=== PATIENT | female | born 1950 | race Caucasian/White ===

== ENCOUNTER 2019-06-28 12:02 | Inpatient (IN) ==
--- NOTE | 2019-06-28 12:21 | Diag Imaging Result Doc PS360 ---
EXAM: CT HEAD W/O CONTRAST 06/28/2019 HISTORY: left sided weakness TECHNIQUE: This exam was performed using automated exposure control, adjustment of mA or kV according to patient size, and/or use of iterative reconstruction technique. COMMENT: There are calcifications in the globus pallidus bilaterally. There is no evidence of mass effect, bleed, or abnormal extra-axial fluid collection. There is hyperostosis of the calvarium. There is also extensive ossification of the falx cerebri. The paranasal sinuses are clear. There is no evidence of acute bony abnormality. IMPRESSION: No evidence of acute intracranial disease. Electronically signed by Jose Sharma 06/28/2019 12:19 PM
--- NOTE | 2019-06-28 12:44 | Diag Imaging Result Doc PS360 ---
EXAM: CHEST-PORTABLE 06/28/2019 HISTORY: tia TECHNIQUE: AP portable upright at 1237 COMMENT: The inspiration is suboptimal. There is some questionable atelectasis or pneumonia in the left lower lobe behind the heart. Otherwise the appearance of the chest has not changed appreciably considering differences in inspiration since 01/22/2015. IMPRESSION: Questionable left lower lobe atelectasis. Electronically signed by Jose Sharma 06/28/2019 12:42 PM
[2019-06-28] MEDS ORDERED: NS 1,000 ML IV ONE ×2 (12:58→15:18)
[2019-06-28 13:17] LABS: BASO# 0.04 X1000 (0.0-0.2); BASO% 0.5 % (0.0-0.8); EOS# 0.08 X1000 (0.0-0.7); EOS% 1.1 % (0.0-10.0); HEMOGLOBIN 12.7 g/dL (12.0-16.0); LYMPH# 2.21 X1000 (1.2-3.4); LYMPH% 30.1 % (20.5-51.1); MCH 27.4 PG (27-31); MCHC 31.8 g/dL (33-37); MCV 86.4 FL (81-99); MONO# 0.61 X1000 (0.11-0.59); MONO% 8.3 % (1.7-9.3); MPV 10.4 FL (7.4-10.4); PLT 285 X1000 (130-400); RBC 4.63 XMIL (4.2-5.4); RDW 13.1 % (11.5-14.5); WBC 7.34 X1000 (4.8-10.8)
[2019-06-28 13:37] LABS: AGAP 13; ALB/GLOB RATIO 1.5; ALBUMIN 3.9 g/dL (3.5-5.0); ALKALINE PHOSPHATASE 88 U/L (32-104); BUN 11 mg/dL (8-22); CALCIUM 8.6 mg/dL (8.8-10.2); CHLORIDE 102 mmol/L (98-107); CK PROFILE 131 U/L (24-173); COSMO 281; CREATININE 0.6 mg/dL (0.5-0.9); ESTIMATED GFR > 60; GLUCOSE 141 mg/dL (70-104); GOT 29 U/L (10-30); GPT 25 U/L (10-36); POTASSIUM 4.7 mmol/L (3.5-5.1); SODIUM 140 mmol/L (136-145); TCO2 25 mmol/L (25-35); TOTAL BILIRUBIN 0.49 mg/dL (0.20-1.00); TOTAL PROTEIN 6.5 g/dL (6.3-8.3)
[2019-06-28] MEDS ORDERED: HEPARIN IV PRN (13:58)
[2019-06-28] MEDS ORDERED: HEPARIN IV ONE ×2 (13:58→14:30)
[2019-06-28] MEDS ORDERED: HEPARIN 25,000 UNITS/D5W 25,000 UNIT/250 ML IV.SOLN IV SCH (14:00)
[2019-06-28 14:29] LABS: INR 0.97; PROTIME 12.9 Seconds (11.0-16.0)
[2019-06-28 14:30] LABS: PTT 26.6 Seconds (22.3-41.8)
[2019-06-28] MEDS ORDERED: HEPARIN 25,000 UNITS/1/2NS 25,000 UNIT/250 ML IV.SOLN IV SCH (15:00)
--- NOTE | 2019-06-28 16:52 | Diag Imaging Result Doc PS360 ---
EXAM: CT ANGIOGRAM HEAD/NECK 06/28/2019 HISTORY: stroke TECHNIQUE: This exam was performed using automated exposure control, adjustment of mA or kV according to patient size, and/or use of iterative reconstruction technique. COMMENT: 3-D MIPS were performed. There are nodules in both thyroid lobes. The common and internal carotid arteries are patent bilaterally. The internal carotids are very tortuous proximally. Both vertebral arteries are patent. The left is larger than the right. The basilar artery is patent. The proximal anterior, middle and posterior cerebral arteries are patent. There is no evidence of aneurysm. There is no evidence of abnormal contrast enhancement in the brain. IMPRESSION: No evidence of significant intra or extra cerebral arterial abnormality. Electronically signed by Jose Sharma 06/28/2019 4:49 PM
[2019-06-28] MEDS ORDERED: ASPIRIN PO ONE (17:05)
--- NOTE | 2019-06-28 17:11 | PROVIDER DOCUMENTATION ---
This chart was entered by Oli Jimenez Scribe, acting as scribe for Cooper Rey DO. HPI-Neurological Disorder - General Chief Complaint: Stroke-Like Symptoms Stated Complaint: SROKE LIKE SYMPTOMS Time Seen by Provider: 06/28/19 12:07 Source: patient Allergies/Adverse Reactions: Patient Allergies Allergy/AdvReac Type Severity Reaction Status Date / Time adhesive Allergy Intermediate RASH Verified 06/28/19 12:59 Home Medications: Home Medication List Medication Instructions Recorded Confirmed Last Taken Type Baclofen 10 mg PO TID 03/24/12 06/28/19 01/21/15 07:00 History Duloxetine [Cymbalta] 60 mg PO BID 03/24/12 06/28/19 01/21/15 07:00 History Hydromorphone [Dilaudid] 4 mg PO 4XDAY 03/24/12 06/28/19 01/21/15 07:00 History Zolpidem [Ambien] 10 mg PO QHS 03/24/12 06/28/19 01/20/15 20:00 History Losartan [Cozaar] 50 mg PO DAILY #30 tablet 01/25/15 06/28/19 Unknown Rx Metoprolol [Lopressor] 50 mg PO BID #60 tablet 01/25/15 06/28/19 Unknown Rx Gabapentin [Neurontin] 400 mg PO TID 06/28/19 06/28/19 Unknown History Lisinopril [Zestril] 20 mg PO DAILY #30 tab 06/28/19 Unknown Rx Metformin E.r. [Glucophage Xr] 500 mg PO BID CC 06/28/19 06/28/19 Unknown History - History of Present Illness-Neuro Nature of Presenting Problem: Pt is a 68 y/o F presents to the ED by EMS reports she woke from a nap difficult to move her left arm and leg. She says this began to wax and wane and when she got to use the bathroom it got worse. She reports in the bathroom and layed on the floor had her sister call EMS. She says she is not able to lay flat since her back surgery 7 months ago. She denies slurred speech or difficultly with speaking. Onset/Duration: reports: abrupt, just prior to arrival Timing: reports: improving (Now able to move all extremites) Character of Altered Mental Status: reports: N/A Any recent trauma/injury?: reports: none Character of Deficits: reports: new weakness. denies: vision problem/glaucoma, impaired speech, impaired swallowing New weakness or altered sensation location:: reports: LUCILA MATTXander Cognitive Baseline: alert, oriented x3 Gait Baseline: walks without assistance Associated Symptoms: reports: numbness in legs/feet. denies: short of breath, headache, dizziness, loss of consciousness, sleepy, tingling in legs/feet Review of Systems - Adult - REVIEW OF SYSTEMS - ADULT Constitutional: denies: chills, fever Eyes: reports: no symptoms reported Ears, Nose, Mouth & Throat: reports: no symptoms reported Cardiovascular: denies: chest pain, edema Respiratory: denies: cough, shortness of breath, wheezing Gastrointestinal: denies: abdominal pain, nausea, vomiting Genitourinary: reports: no symptoms reported Musculoskeletal: denies: bone pain, back pain, neck pain Integumentary: reports: no symptoms reported Neurological: reports: numbness (left arm and leg). denies: dizziness/vertigo, headache/migraines, slurred speech, syncope Psychiatric: reports: no symptoms reported Endocrine: reports: no symptoms reported Hematologic/Lymphatic: reports: no symptoms reported Allergic/Immunologic: reports: no symptoms reported All Other Systems: Reviewed and Negative Past History - Adult - PAST MEDICAL HISTORY-ADULT Review of Records: reports: Old Records Reviewed, Nursing Assessment Review, Medications Reviewed Cardiovascular: reports: HTN Gastrointestinal: reports: diverticulosis, ulcer Musculoskeletal: reports: arthritis (rheumatoid) - PRIOR SURGERIES/PROCEDURES Surgical/Procedure History: reports: bowel surgery (colectomy due to diverticulitis and perf peptic ulcer repair) - SOCIAL HISTORY Smoking: non-smoker, quit greater than 1 year Substance Use: alcohol Alcohol Use Frequency: occasionally Physical Exam- Neurological - Physical Exam-Neuro Initial Vital Signs Reviewed: Yes General Appearance: appears well, alert, no apparent distress Eye Exam: bilateral eye: normal inspection HENMT: moist mucous membranes, normal ENT inspection Head Injury: no evidence of injury. 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 negative: normal finger to nose (left is abnormal) Motor/Sensory: no motor deficit, no sensory deficit, no pronator drift Neurologic: grossly normal, no motor/sensory deficits Integumentary: normal color, normal turgor, warm/dry Psych/Mental Status: normal mood/affect, normal thought content, normal thought process, oriented x 3 Progress - PLAN OF CARE/RESULTS Progress/Plan/Lab Results: Vital Signs - 8 hr 06/28/19 12:05 06/28/19 12:23 06/28/19 13:15 Temperature 97.8 F Pulse Rate 68 62 60 Respiratory Rate 18 19 12 Blood Pressure 153/86 153/86 156/82 O2 Sat by Pulse Oximetry 95 92 L 96 06/28/19 14:15 06/28/19 14:45 06/28/19 14:53 Temperature 98.4 F Pulse Rate 61 66 65 Respiratory Rate 17 14 18 Blood Pressure 133/73 95/74 139/79 O2 Sat by Pulse Oximetry 94 L 93 L 86 L 06/28/19 14:54 06/28/19 15:00 06/28/19 15:03 Temperature Pulse Rate 64 64 65 Respiratory Rate 20 17 20 Blood Pressure 143/68 O2 Sat by Pulse Oximetry 95 96 95 06/28/19 15:15 06/28/19 15:30 06/28/19 15:32 Temperature Pulse Rate 65 66 66 Respiratory Rate 18 13 12 Blood Pressure 114/52 O2 Sat by Pulse Oximetry 95 94 L 94 L 06/28/19 15:45 06/28/19 16:21 06/28/19 16:30 Temperature Pulse Rate 70 79 77 Respiratory Rate 16 17 15 Blood Pressure O2 Sat by Pulse Oximetry 94 L 92 L 95 06/28/19 16:32 06/28/19 16:45 Temperature Pulse Rate 79 73 Respiratory Rate 16 17 Blood Pressure 165/89 O2 Sat by Pulse Oximetry 95 96 Laboratory Results - last 24 hr 06/28/19 06/28/19 06/28/19 12:22 12:50 12:50 WBC RBC Hgb Hct MCV MCH MCHC RDW Std Deviation Plt Count MPV Immature Gran % (Auto) Neut % (Auto) Lymph % (Auto) Pender % (Auto) Eos % (Auto) Baso % (Auto) Immature Gran # (Auto) Neut # (Auto) Lymph # (Auto) Pender # (Auto) Eos # (Auto) Baso # (Auto) PT INR PTT (Actin FS) Sodium 140 Potassium 4.7 Chloride 102 Carbon Dioxide 25 Anion Gap 13 BUN 11 Creatinine 0.6 Estimated GFR/1.73 m2 > 60 BUN/Creatinine Ratio 18 Glucose 141 H POC Glucose 145 H Calculated Osmolality 281 Calcium 8.6 L Total Bilirubin 0.49 AST 29 ALT 25 Alkaline Phosphatase 88 Creatine Kinase 131 Gea-B-Fwjzwjeadds Pept 317 Total Protein 6.5 Albumin 3.9 Globulin 2.6 Albumin/Globulin Ratio 1.5 06/28/19 06/28/19 12:50 12:50 WBC 7.34 RBC 4.63 Hgb 12.7 Hct 40.0 MCV 86.4 MCH 27.4 MCHC 31.8 L RDW Std Deviation 13.1 Plt Count 285 MPV 10.4 Immature Gran % (Auto) 0.0 Neut % (Auto) 60.0 Lymph % (Auto) 30.1 Pender % (Auto) 8.3 Eos % (Auto) 1.1 Baso % (Auto) 0.5 Immature Gran # (Auto) 0.00 Neut # (Auto) 4.40 Lymph # (Auto) 2.21 Pender # (Auto) 0.61 H Eos # (Auto) 0.08 Baso # (Auto) 0.04 PT 12.9 INR 0.97 PTT (Actin FS) 26.6 Sodium Potassium Chloride Carbon Dioxide Anion Gap BUN Creatinine Estimated GFR/1.73 m2 BUN/Creatinine Ratio Glucose POC Glucose Calculated Osmolality Calcium Total Bilirubin AST ALT Alkaline Phosphatase Creatine Kinase Npl-N-Kgsdbvztpzb Pept Total Protein Albumin Globulin Albumin/Globulin Ratio Orders Category Date Time Status Hold Pressure Notice (Heparin Protocol) ORDERED Care 06/28/19 13:58 Completed Observe for Bleeding (Heparin Protocol) ORDERED Care 06/28/19 13:58 Completed Weigh Patient NOW Care 06/28/19 13:58 Active CHEST-PORTABLE [RAD] Stat Exams 06/28/19 12:[address] HEAD W/O CONTRAST [CT] Stat Exams 06/28/19 12:05 Completed CTA [CT ANGIOGRAM HEAD/NECK] [CT] Stat Exams 06/28/19 15:14 Completed CBC WITH DIFF [HEME] Lab 06/29/19 06:00 Uncollected CBC WITH DIFF [HEME] Lab 06/30/19 06:00 Uncollected CBC WITH DIFF [HEME] Lab 07/01/19 06:00 Uncollected CBC WITH ELECTRONIC DIFF [HEME] Stat Lab 06/28/19 12:50 Completed CK PROFILE [SP CHEM] Stat Lab 06/28/19 12:50 Completed COMPREHENSIVE METABOLIC PANEL [CHEM] Stat Lab 06/28/19 12:50 Completed PRO B-NATRIURETIC PEPTIDE Stat Lab 06/28/19 12:50 Completed PROTIME WITH INR [COAG] Stat Lab 06/28/19 12:50 Completed PTT [COAG] Stat Lab 06/28/19 12:50 Completed 0.9% Sodium Chloride Inj [Ns] 1,000 ml Med 06/28/19 12:58 Discontinued IV 999 mls/hr 0.9% Sodium Chloride Inj [Ns] 1,000 ml Med 06/28/19 15:18 Discontinued IV 999 mls/hr Aspirin Med 06/28/19 17:05 Discontinued 324 mg PO NOW ONE Heparin Med 06/28/19 14:30 Discontinued 5,000 unit IV NOW ONE Heparin Med 06/28/19 13:58 Discontinued 5,272 unit IV PRN PRN Heparin Med 06/28/19 13:58 Discontinued See Dose Instructions IV NOW ONE Heparin 25,000 Units/1/2Ns Med 06/28/19 15:00 Discontinued 25,000 unit in 250 ml IV 12 unit/kg/hr Heparin 25,000 Units/D5w Med 06/28/19 14:00 Discontinued 25,000 unit in 250 ml IV 12 unit/kg/hr Result Diagrams: 06/28/19 12:50 06/28/19 12:50 - REASSESSMENT Reassessment #1 Time Reassessed: 12:55 (Pt weakness and not able to move her left arm and leg is waxing and waning. The risk of the us of blood thinners has been discussed with the family. ) Status: other - EKG 1 Time of EKG reading by physician:: 12:31 EKG Read and Signed by:: Cooper Rey EKG Interpretation (*Must complete 3 of following elements*): Abnormal Rate: 60 Rhythm: NSR Naoma: left Comments: Left bundle branch block - XRAY 1 XRAY Study: Chest Impression: Abnormal (XAM: CHEST-PORTABLE 06/28/2019 HISTORY: tia TECHNIQUE: AP portable upright at 1237 COMMENT: The inspiration is suboptimal. There is some questionable atelectasis or pneumonia in the left lower lobe behind the he art. Otherwise the appearance of the chest has not changed appreciably considering differences in inspiration since 01/22/2015. IMPRESSION: Questionable left lower lobe atelectasis. Electronically signed by Jose Sharma 06/28/2019 12:42 PM 06/28/19 1242 Interpreting Physician: Jose Sharma MD Dictated Date/Time: 06/28/19 1242 cc: Cooper Rey DO; Margarita Draper MD), See EMR Report - CT/MRI 1 CT Study: Head Impression: Normal (EXAM: CT HEAD W/O CONTRAST 06/28/2019 HISTORY: left sided weakness TECHNIQUE: This exam was performed using automated exposure control, adjustment of mA or kV according to patient size, and/or use of iterative reconstruction technique. COMMENT: There are calcifications in the globus pallidus bilaterally. There is no evidence of mass effect, bleed, or abnormal extra-axial fluid collection. There is hyperostosis of the calvarium. There is also extensive ossification of the falx cerebri. The paranasal sinuses are clear. There is no evidence of acute bony abnormality. IMPRESSION: No evidence of acute intracranial disease. Electronically signed by Jose Sharma 06/28/2019 12:19 PM 06/28/19 1219 Interpreting Physician: Jose Sharma MD Dictated Date/Time: 06/28/19 1218 cc: Cooper Rey DO; Margarita Draper MD), See EMR Report 2 CT Study: other (CTA neck and Head) Impression: Normal ( EXAM: CT ANGIOGRAM HEAD/NECK 06/28/2019 HISTORY: stroke TECHNIQUE: This exam was performed using automated exposure control, adjustment of mA or kV according to patient size, and/or use of iterative reconstruction technique. COMMENT: 3-D MIPS were performed. There are nodules in both thyroid lobes. The common and internal carotid arteries are patent bilaterally. The i nternal carotids are very tortuous proximally. Both vertebral arteries are patent. The left is larger than the right. The basilar artery is patent. The proximal anterior, middle and posterior cerebral arteries are patent. There is no evidence of aneurysm. There is no evidence of abnormal contrast enhancement in the brain. IMPRESSION: No evidence of significant intra or extra cerebral arterial abnormality. Electronically signed by Jose Sharma 06/28/2019 4:49 PM 06/28/19 [id number]), See EMR Report - CONSULTS/PCP/HOSPITALIST Notification #1 *Consult/PCP/Hospitalist*: Hospitalist: Spoke with Sylvester coles Reena Time Discussed: 14:34 Reason/Comments: admit Consult Disposition: other (Request Neuro consult in [place] to review plan of care prior to accepting admission) #2 Consult: [facility] Neuro: Spoke with Yunior Time Discussed: 15:11 Reason/Comments: Review HPI with Plan of care options Consult Disposition: other (Complete CTA, report results) #3 Consult: Spoke with Lakisha and will accept Time Discussed: 17:04 Consult Disposition: Will see in ED Departure - Departure Date of Disposition Decision: 06/28/19 Time of Disposition Decision: 17:09 DIAGNOSIS: CVA (cerebral vascular accident) Qualifiers: CVA mechanism: occlusion Precerebral and cerebral artery: middle cerebral artery Laterality of affected vessel: right Qualified Code(s): I63.511 - Cerebral infarction due to unspecified occlusion or stenosis of right middle cerebral artery Disposition: ADMITTED INPATIENT 09 Certified Medical Emergency: Emergent Condition: Serious Additional Instructions: ED Follow Up Instructions: You have been treated by a care provider in the Emergency Department. These instructions are being provided to you so you can have an understanding of how to care for yourself upon discharge. Upon discharge from the Emergency Department, you are responsible for making arrangements for follow-up care by a physician of your choice. Take all prescribed medications as directed. Return to the Emergency Department immediately for any new or worsening symptoms. You may call the Physician Referral phone number at [phone] to obtain a list of Physicians who are taking new patients. Prescriptions: Lisinopril [Zestril] 20 mg PO DAILY #30 tab Referrals and Follow-Ups: Margarita Draper MD [Primary Care Provider] - - Critical Care Note This patient required my direct & personal management of CC.: No Attestation - Physician/ JOSE ROBERTO Attestation Patient care was provided by Advanced Practice Provider:: No The physician spent face to face time with patient:: Yes Advanced Practice Provider documentation review:: Supervising physician onsite and consulted in the evaluation and care of this patient. The physician did have a face to face encounter with the patient. - NIH Stroke Scale Level of Consciousness: 0-Alert LOC Questions (ask month and age): 0-Answers Both Correctly LOC Commands (ask to open & close eyes;make a fist, let go): 0-Obeys Both Correctly Best Gaze (horizontal eye movement): 0-Normal Visual (use finger movement, counting or visual threat): 1-Partial Hemianopia Facial Palsy (show teeth or raise eyebrows & close eyes tght: 0-Symmetrical Movement Motor Function-left arm: 4-No Movement Motor Function-right arm: 0-Normal Motor Function-left le-No Movement Motor Function-right le-Normal Limb Ataxia(ofobyo-ccxw-tyxzxe, or heel to johnson): 1-Present in one limb Sensory(pin prick to face,arms,trunk,legs-compare side/side): 0-No Ataxia Best Language(name item/read sentence.Ex-Down to Earth): 0-No Aphasia Dysarthria(Pt read words or say words Ex.Mama,Tip-Top,Thanks: 0-Normal Articulation Extinction and Inattention: 0-Normal NIH Total Score: 10 This chart was documented by the indicated scribe, (Oli Jimenez, Joan) and accurately reflects the services I performed and decisions made by , Cooper Rey DO, as attested by the provider's signature.
[2019-06-28] MEDS ORDERED: TYLENOL PO PRN (17:12)
[2019-06-28] MEDS ORDERED: ZOFRAN IV PRN (17:12)
--- NOTE | 2019-06-28 18:16 | EKG Report ---
Test Performed on : 06/28/2019 12:31:52 PM Test Reason : stroke sym Blood Pressure : / mmHG Vent. Rate : 060 BPM Atrial Rate : 060 BPM P-R Int : 188 ms QRS Dur : 162 ms QT Int : 494 ms P-R-T Axes : 065 -58 069 degrees QTc Int : 494 ms Normal sinus rhythm. Left axis deviation Left bundle branch block Abnormal ECG When compared with ECG of 21-JAN-2015 08:46, premature ventricular complexes. are no longer present Vent. rate has decreased BY 34 BPM Unconfirmed Result
--- NOTE | 2019-06-28 19:13 | HISTORY AND PHYSICAL ---
ADDENDUM TO HISTORY AND PHYSICAL: I have seen and examined Ms. Leo today in the emergency room. At the bedside was the sister who lives with her, the granddaughter and a son who also joined a little later. Ms. Leo comes in because of left-sided weakness which started at about 10:00 this morning. I understand she said she woke up early this morning at around 8:00 with some weakness, but she did not make a whole lot of it. Then, went to use the restroom at about 10:00, and she just could not get up, she felt remarkably weaker. The sister thinks that she also has some left facial weakness as well. Ms. Leo was brought into the emergency room where she was evaluated. According to Dr. Rey, the weakness got some improvement, but then after the scan, he came back to evaluate her and she had more weakness. He initially reached out to us, and I asked him to get teleneurology. He was able to talk with Dr. Mojica, who reviewed, I understand, the whole history, and recommended the patient to be here because she is not a candidate for tPA. PHYSICAL EXAMINATION: CURRENT VITALS: Blood pressure is 165/89, pulse is 73, respirations 17, temperature is 98.4. GENERAL: Ms. Leo is a 68-year-old, female. She is in bed, no distress. HEENT: Mucosa is pink and moist. She is overweight with a BMI of 46.7. CHEST: Clear to auscultation. CARDIOVASCULAR: Regular rate and rhythm. ABDOMEN: Soft, distended. EXTREMITIES: No pedal edema. CENTRAL NERVOUS SYSTEM: The patient is awake, alert, conversational. She is even drinking soft drinks during the entire encounter. She would intermittently move the left side without being told to do so. She would actively, however, move the right side. Now, on exploration, she seems to be resisting to explore the left side. When I tried to bend the knee for tone, she was very rigid and was barely tonic. I did ask her to relax and she was able to kind of free up a little bit. Babinski were both downgoing in lower extremities. I did not see any exaggerated reflexes. In terms of the cranial nerves, everything seems to be normal to me. I did not particularly find any facial droop as the sister seems to think that there was. Ms. Leo was able to protrude her tongue, move it [id number] without any difficulty. She was able to shrug both shoulders and strength was remarkably normal in both sides. She was able to move the left upper extremity against gravity. She was able to squeeze my hand and push my hand very hard. It felt slightly weaker, but I think that she was fine. LABORATORY AND DIAGNOSTIC DATA: Her laboratory data has been evaluated including CBC and chemistry, which are unremarkable. CT scan of the head showed no evidence of acute intracranial disease. CTA of the head was also done. There was no evidence of significant intracerebral or extracerebral arterial abnormality. ASSESSMENT: 1. Subjective left-side weakness. I was not particularly able to elicit any remarkable weakness. However, Ms. Gasca says this comes and goes. Unsure if this is recurrent transient ischemic attack or if it is medication side effects or if it is any psychosocial manifestation. At any point, her initial neuroimagings have been negative. Neurotele has been consulted. They recommend to continue aspirin, hydration, keep in the ICU for close neuromonitoring, and get an MRI on Sunday. 2. Chronic pain syndrome. On home medications. Patient follows up with Dr. Gambino. 3. Fibromyalgia. 4. Hypertension. Patient is on losartan. 5. Diabetes mellitus. Patient is on metformin. This will be withheld during the hospital course, and we will use sliding scale and long-acting insulin for glucose control. 6. Multiple psychotropic medications at home including Cymbalta and Neurontin. The patient has been started back on her medications. PLAN: In general, Ms. Leo refers a subjective left-sided weakness. Neurotele has been consulted. She is going to be admitted to the ICU for close neurological observation. We will continue adequate IV fluids, aspirin therapy. Re-evaluate her in the morning and then go from there. I have discussed this plan with Ms. Leo, the son, the daughter, the granddaughter, and the sister who were all at the bedside at the time of the encounter. Please refer to the details of the history and physical that has been dictated by the REGULATORY MANAGER in the chart. I have discussed the plan with her. cc: Raman Valles MD
[2019-06-28] MEDS: LOPRESSOR PO SCH ×2 (19:50→21:00)
[2019-06-28] MEDS ORDERED: LOPRESSOR ONE (19:53)
--- NOTE | 2019-06-28 20:09 | HISTORY AND PHYSICAL ---
PRIMARY CARE PROVIDER: Margarita Draper MD. CHIEF COMPLAINT: Left arm and leg intermittent numbness and weakness. HISTORY OF PRESENT ILLNESS: Ms. Joann Leo is a 68-year-old female with a medical history of fibromyalgia, chronic pain secondary to degenerative disc disease in her back, diabetes mellitus type 2, rheumatoid arthritis, and peptic ulcer disease who states that around 10 a.m. this morning she lay down to have a nap. Around 10:30 she got up to go to the bathroom but noticed her left arm and leg had gone numb, and she could not move them. It did not last long. She was able to get up and go to the restroom, and then it came back, and these symptoms have been intermittent for her. She denies any pain. Essentially no other symptoms other than she just felt like she was off a little bit. She presented to the emergency department, where her initial head CT was negative. The neurologist Dr. Mojica at [facility] was contacted, who recommended a CTA of the brain and the neck to evaluate any intermittent claudication that could possibly have intervention, and that came back normal. His recommendations then were for aspirin and IV fluid hydration, which has since been initiated. Currently, just trace weakness in the left hand. Otherwise, the neurological assessment is not significant. PAST MEDICAL HISTORY: 1. Rheumatoid arthritis. 2. Fibromyalgia. 3. Morbid obesity with BMI of 46.7. 4. Peptic ulcer disease. 5. Hypertension. 6. Chronic pain syndrome, mostly in her back from degenerative disc disease. 7. Diabetes mellitus type 2. PAST SURGICAL HISTORY: 1. Recent back surgery. 2. Right knee replacement. 3. Bilateral breast cysts removed. 4. Bilateral breast reduction. 5. Peptic ulcer disease with perforation and clipping. 6. Colon resection with colostomy placed secondary to diverticula, and she has had a bag reversal. 7. Total hysterectomy. 8. Cholecystectomy. 9. Appendectomy. SOCIAL HISTORY: She does not smoke. She has not smoked in 50+ years. She states she only smoked when she was in her teens. She states that she drinks alcohol but it is very rare. It is wine if she does. Denies any illicit drug use. 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 She is not . She is actually . She has children who live close by and help with her assistance. FAMILY HISTORY: Mother had diabetes, and she also had a defibrillator pacemaker. Father had lung cancer. ALLERGIES: Adhesive tape. HOME MEDICATIONS: 1. Ambien 10 mg p.o. nightly. 2. Baclofen 10 mg p.o. t.i.d. 3. Cymbalta 60 mg p.o. b.i.d. 4. Dilaudid 4 mg 4 times a day. 5. Glucophage 500 mg p.o. twice a day. 6. Neurontin 400 mg p.o. t.i.d. 7. Cozaar 50 mg p.o. daily. 8. Lopressor 50 mg p.o. twice daily. 9. Lisinopril 20 mg p.o. daily. REVIEW OF SYSTEMS: Fourteen-point review of systems was completed, and all were negative except for those mentioned above in HPI. Physical. PHYSICAL EXAMINATION: VITAL SIGNS: Temperature 98.4, heart rate 66, respiratory rate 12, blood pressure 114/52, O2 saturation 94% on room air. She is 5 feet 6 inches tall, 189 pounds, with a BMI of 46.7. GENERAL: Ms. Joann Leo is a 68-year-old female. She is in no acute distress. She is able answer questions appropriately. HEENT: Atraumatic, normocephalic. Pupils equal, round, reactive to light. Extraocular movements intact. Mucous membranes are moist. NECK: Trachea midline. CARDIOVASCULAR: S1, S2. Regular rate and rhythm. No rubs, gallops, murmurs. No lower extremity edema, +2 dorsalis and radial pulses. Negative JVD or carotid bruits. PULMONARY: Clear to auscultate, bilateral breath sounds. No accessory muscle use or work of breathing noted GI: Soft, nontender, nondistended. Positive bowel sounds x4. EXTREMITIES: Moves all extremities equally. Decreased hand strength in the left hand. NEUROLOGIC: A and O x3. Follows commands. Sensory is intact. SKIN: Warm, dry, intact. LABORATORY DATA: White blood cells 7000, hemoglobin 12, hematocrit 40, platelet count 285. INR 0.97, PTT 26.6. Sodium 140, potassium 4.7, BUN 11, creatinine 0.6, glucose 141, calcium 8.6. Bilirubin 0.49, AST 29, ALT 25. CK 131. ProBNP is 317. Albumin is 3.9. IMAGING: Head CT without contrast: No evidence of acute intracranial findings. Chest x-ray: Questionable left lower lobe atelectasis. Head and neck CT: No evidence of a of significant intracerebral or extracerebral arterial abnormalities. ASSESSMENT AND PLAN: 1. Transient ischemic attack versus cerebrovascular accident with intermittent symptoms of left upper and lower extremity weakness, numbness and tingling. Hand project assistant might have been weak on the left but did not display any signs or changes in that left upper and lower extremity, which she at the time states that it had resolved, but that it keeps coming back intermittently. Will do a Neurology consult. MRI on Sunday. Echocardiogram, carotid ultrasound. Aspirin daily, statin in the evenings. We will do a hemoglobin A1c and a lipid panel. 2. Diabetes mellitus type 2. We will do pattern blood glucoses and sliding-scale insulin. 3. Fibromyalgia with chronic pain. Given neurological changes, we will hold off on some of those medications right now. We can resume those as needed. 4. Hypertension. It is okay to allow for a little permissive hypertension. Some of her antihypertensive have been resumed. Currently, her blood pressure is like 114/52, and the highest was 156/82. 5. Deep venous thrombosis prophylaxis with sequential compression devices. Dictated by RIANA Wagner for Raman Valles MD cc: RIANA Wagner MD
[2019-06-28 20:25] LABS: BASO# 0.03 X1000 (0.0-0.2); BASO% 0.4 % (0.0-0.8); EOS% 1.3 % (0.0-10.0); HEMATOCRIT 35.2 % (37.0-47.0); HEMOGLOBIN 11.1 g/dL (12.0-16.0); IMM GRAN# 0.02 X1000 (0.0-0.04); IMM GRAN% 0.3 % (0.0-0.5); LYMPH# 3.03 X1000 (1.2-3.4); LYMPH% 38.4 % (20.5-51.1); MCH 27.5 PG (27-31); MCHC 31.5 g/dL (33-37); MCV 87.1 FL (81-99); MONO# 0.52 X1000 (0.11-0.59); MONO% 6.6 % (1.7-9.3); MPV 10.4 FL (7.4-10.4); NEUT# 4.19 X1000 (1.4-6.5); PLT 243 X1000 (130-400); RBC 4.04 XMIL (4.2-5.4); WBC 7.89 X1000 (4.8-10.8)
[2019-06-28] MEDS: LIPITOR PO SCH (21:00)
[2019-06-28] MEDS: HUMULIN R SUBQ SCH (21:00)
[2019-06-28] MEDS: CYMBALTA PO SCH (21:00)
[2019-06-28] MEDS: DILAUDID PO SCH (21:38)
[2019-06-29 01:25] LABS: URINE SOURCE CATH
[2019-06-29 01:52] LABS: BILIRUBIN URINE NEGATIVE (NEGATIVE); BLOOD URINE NEGATIVE (NEGATIVE); COLOR YELLOW; GLUCOSE URINE NEGATIVE (NEGATIVE); KETONE URINE NEGATIVE (NEGATIVE); LEUKOCYTES URINE NEGATIVE (NEGATIVE); NITRITE URINE NEGATIVE (NEGATIVE); PROTEIN URINE NEGATIVE (NEGATIVE); SP GRAVITY URINE 1.028; TURBIDITY URINE CLEAR (CLEAR); UROBILINOGEN URINE NORMAL (NORMAL)
[2019-06-29 01:53] LABS: UR EPITHELIAL CELLS <10 /HPF (<10); URINE BACTERIA NEGATIVE /HPF; URINE RBC <10 /HPF (<10); URINE WBC <10 /HPF (<10)
[2019-06-29] MEDS: HUMULIN R SUBQ SCH ×3 (06:17→19:21)
[2019-06-29 06:53] LABS: HEMOGLOBIN A1C 7.1 % (4.8-6.0)
[2019-06-29 07:55] LABS: AGAP 11; ALB/GLOB RATIO 1.2; ALBUMIN 3.4 g/dL (3.5-5.0); ALKALINE PHOSPHATASE 80 U/L (32-104); BUN 7 mg/dL (8-22); CALCIUM 8.4 mg/dL (8.8-10.2); CHLORIDE 102 mmol/L (98-107); COSMO 276; CREATININE 0.6 mg/dL (0.5-0.9); ESTIMATED GFR > 60; GLUCOSE 132 mg/dL (70-104); GOT 23 U/L (10-30); GPT 20 U/L (10-36); POTASSIUM 3.6 mmol/L (3.5-5.1); SODIUM 138 mmol/L (136-145); TCO2 25 mmol/L (25-35); TOTAL BILIRUBIN 0.66 mg/dL (0.20-1.00); TOTAL PROTEIN 6.2 g/dL (6.3-8.3)
[2019-06-29] MEDS: DILAUDID PO SCH ×4 (09:04→20:37)
[2019-06-29] MEDS: COZAAR PO SCH (09:05)
[2019-06-29] MEDS: CYMBALTA PO SCH ×2 (09:05→20:38)
[2019-06-29] MEDS: ASPIRIN PO SCH (09:05)
[2019-06-29] MEDS: LOPRESSOR PO SCH ×2 (09:06→20:37)
[2019-06-29] MEDS: NEURONTIN PO SCH ×3 (09:06→17:07)
[2019-06-29] MEDS: ALDACTONE PO SCH (10:51)
--- NOTE | 2019-06-29 10:55 | PROGRESS NOTE ---
DATE: 06/29/2019 SUBJECTIVE: This morning Ms. Leo referred to be doing completely well. She says she has no neuro deficit. She has not felt any more numbness in the left side. She is moving everywhere equally. OBJECTIVE: Vital signs: Blood pressure is 195/90, pulse of 68, respirations 21, temperature is 97.6 degrees. General: Ms. Leo is a 71-year-old female. She is in bed, no distress. HEENT: Mucosa is pink and moist. Anicteric. Acyanotic. Neck: Supple. Chest: Good air entry bilateral. There was no crepitations no rhonchi. Cardiovascular: Regular rate and rhythm. No murmurs, no rubs, no gallops. GI: Abdomen soft, nontender. Bowel sounds present. Extremities: No pedal edema. FLOOR AND WALL APPLIER LIQUID: FLOOR AND WALL APPLIER LIQUID patient is awake, alert, oriented. Power is 5/5 in all extremities. No sensation deficit. No reflexes abnormality dictated. LABORATORY DATA: Chemistry shows A1c of 7.1. Patient triglyceride is 202, cholesterol is 154, HDL cholesterol is 36. ASSESSMENT: 1. Subjective left to left-sided weakness on presentation. There was a question if the patient had a stroke. This morning, this is completely resolved. Unsure if she had a TIA. We are waiting for the MRI and MRA to complete the neuro workup. She is also pending Neurology evaluation hopefully tomorrow. Dr. Mojica was consulted via Tele Neuro yesterday. 2. Chronic pain syndrome. The patient follows up with Dr. Gambino. She is currently on back on her medications. 3. History of fibromyalgia. 4. Uncontrolled hypertension. We will continue to titrate her blood pressure. 5. Diabetes mellitus. Presenting A1c of 7.1. The patient is on insulin regimen at this point. She will be transitioned to p.o. metformin whenever she is being discharged. 6. Psychotropic medications including Cymbalta and Neurontin. The patient has been started back on them. 7. Dyslipidemia. The patient is on atorvastatin. PLAN: So, in general, this morning, Ms. Leo is completely stable. No more deficits. We are going to discontinue the Jackson catheter. We are going to transfer her from the ICU to the medical floor. We will be pending the further neuro imaging studies and neurology evaluation. I think Ms Leo could potentially be discharged tomorrow if she remains stable. cc: Raman Valles MD MTDNeto
--- NOTE | 2019-06-29 17:59 | ECHO REPORT ---
ORDER DATE: 06/29/2019 INTERPRETING PHYSICIAN: Dr. Parr CLINICAL INDICATIONS: Hypertension. Diabetes. TIA. M-MODE MEASUREMENTS: Left ventricle end diastole: 5.7 cm. Left ventricle end systole: 4.2 cm. Posterior wall: 1.1 cm. Interventricular septum: 1.0 cm. Left atrium: 4.8 cm. Aortic diameter: 3.6 cm. SUMMARY OF 2-DIMENSIONAL IMAGIN. The left ventricular chamber appears to be at the upper limits of normal. Left ventricular ejection fraction is estimated at 50%, which is mildly decreased. The impairment appears to be global. 2. Aortic valve has three cusps. Color flow mapping indicates mild degree of regurgitation. 3. Mitral valve looks grossly normal. Color flow mapping shows mild degree of regurgitation. 4. Pulse wave Doppler of mitral inflow shows reversal of the E and the A ratio. Ratio is 0.7. 5. Tissue Doppler of septal and lateral mitral annulus averages 5 cm. There is impaired left ventricular relaxation. 6. The left atrium appears to be mildly enlarged. 7. The pulmonary valve is normal. Color flow mapping unremarkable. 8. The tricuspid valve shows no significant regurgitation. 9. The pulmonary pressure is probably normal. 9. The inferior vena cava is not dilated. 10.Optison was added to optimize visualization of the endocardium. With the Optison, ejection fraction is again probably in the order of 45% to 50%. Clinical correlation is recommended. cc: MD Raman Kaminski MD
[2019-06-29] MEDS: LIPITOR PO SCH (20:37)
[2019-06-29] MEDS: AMBIEN PO SCH (22:13)
[2019-06-30] MEDS: HUMULIN R SUBQ SCH ×5 (03:24→22:11)
[2019-06-30 06:54] LABS: AGAP 11; ALB/GLOB RATIO 1.3; ALBUMIN 3.4 g/dL (3.5-5.0); ALKALINE PHOSPHATASE 82 U/L (32-104); BUN 6 mg/dL (8-22); CALCIUM 8.7 mg/dL (8.8-10.2); CHLORIDE 104 mmol/L (98-107); COSMO 281; CREATININE 0.6 mg/dL (0.5-0.9); ESTIMATED GFR > 60; GLUCOSE 138 mg/dL (70-104); GOT 25 U/L (10-30); GPT 22 U/L (10-36); POTASSIUM 3.8 mmol/L (3.5-5.1); SODIUM 141 mmol/L (136-145); TCO2 26 mmol/L (25-35); TOTAL BILIRUBIN 0.63 mg/dL (0.20-1.00); TOTAL PROTEIN 6.1 g/dL (6.3-8.3)
--- NOTE | 2019-06-30 07:04 | EKG Report ---
Test Performed on : 06/29/2019 04:56:58 AM Test Reason : EVAL Blood Pressure : / mmHG Vent. Rate : 063 BPM Atrial Rate : 063 BPM P-R Int : 202 ms QRS Dur : 166 ms QT Int : 502 ms P-R-T Axes : 069 -43 085 degrees QTc Int : 513 ms Normal sinus rhythm. Left axis deviation Left bundle branch block Abnormal ECG When compared with ECG of 28-JUN-2019 12:31, (Unconfirmed) No significant change was found Confirmed by Tyshawn MAGANA, Shashank Otoole ([id number]) on 06/30/2019 12:08:27 PM
--- NOTE | 2019-06-30 07:55 | PROGRESS NOTE ---
DATE: 06/30/2019 SUBJECTIVE: No acute events overnight. As per the patient she is doing well today. No neurological deficit. Pending carotid ultrasound results; pending neurological evaluation, MRI and MRA of the brain. Her blood pressure has been elevated, so I will add amlodipine to her medications to see how she does. She has been already on losartan and metoprolol. I will continue with aspirin and atorvastatin as well. I reviewed the new echocardiogram done on 06/29/2019, and it looks like the ejection fraction is around 50%. Previously, on 08/06/2018, she had an echocardiogram that showed a normal ejection fraction with some diastolic dysfunction. As per the patient she has been having some shortness of breath for the past month. There are no signs of CHF at this moment. Her lungs are completely clear, but I would like this patient to see the Cardiology Department as an outpatient in a few days. OBJECTIVE: Vital Signs: Temperature 97.3 degrees, pulse 62, respiratory rate 15, blood pressure 162/97, and oxygen saturation 95% on room air. HEENT: Head normocephalic, no trauma. PERRLA. Neck: Supple. No JVD. No masses. Central trachea. Chest: Clear to auscultation. No wheezing. No rales. Abdomen: Soft, nontender, nondistended. No hepatosplenomegaly. Extremities: No clubbing, no cyanosis. Neurological: The patient is awake. She is alert. She is oriented x3. No focal neurological deficits. LABORATORY: Sodium 141, potassium 3.8, chloride 104, bicarbonate 26, BUN 6, creatinine 0.6 glucose 138, calcium 8.7. ASSESSMENT AND PLAN: 1. Likely transient ischemic attack. The patient apparently presented with left-sided weakness that has completely resolved. Pending MRI and MRA of the head. Apparently the episode was last Sunday, and yesterday as per the report she was fine. Pending neurological evaluation and images. 2. Chronic pain syndrome. Apparently, she follows up with Dr. Gambino. She is currently back on her home medications. 3. History of fibromyalgia, aware. 4. Uncontrolled hypertension. At home she is on metoprolol and lisinopril. She has been placed on losartan here, and also I will add amlodipine to her medications. 5. Type 2 diabetes, with a hemoglobin A1c of 7.1. We will continue we will continue with the same management for now. 6. Apparent history of rheumatoid arthritis, aware. 7. She is on psychotropic medications including Cymbalta and Neurontin. I am not quite sure why, but apparently she has been taking these medications for a little bit now. We will continue with that. 8. Dyslipidemia. Continue with atorvastatin. DISPOSITION: This patient will get an MRI and MRA of the head. Neurology Department will evaluate this patient. She has been already placed on physical therapy evaluation. I will continue with same management and let us see how she does. cc: Franco Mix MD
[2019-06-30] MEDS: CYMBALTA PO SCH ×2 (08:52→22:11)
[2019-06-30] MEDS: COZAAR PO SCH (08:52)
[2019-06-30] MEDS: DILAUDID PO SCH ×4 (08:52→22:12)
[2019-06-30] MEDS: ALDACTONE PO SCH (08:52)
[2019-06-30] MEDS: NEURONTIN PO SCH ×3 (08:53→17:44)
[2019-06-30] MEDS: NORVASC PO SCH (08:53)
[2019-06-30] MEDS: LOPRESSOR PO SCH ×2 (08:53→22:11)
[2019-06-30] MEDS: ASPIRIN PO SCH (08:54)
--- NOTE | 2019-06-30 12:09 | Diag Imaging Result Doc PS360 ---
EXAM: MRI BRAIN W/WO CONTRAST INDICATION: tia symptoms COMPARISON: CT head dated 06/28/2019. No prior MRI brain is available for comparison. FINDINGS: There is an acute lacunar infarct involving the right basal ganglion that extends into the right periventricular white matter. It is not visible on the recent CT. There is corresponding T2/FLAIR hyperintensity. No other acute infarct is appreciated. There is mild patchy T2/FLAIR hyperintensity in the periventricular and subcortical white matter suggesting very mild microangiopathy. There is no discrete intracranial mass, mass effect, or intracranial hemorrhage. There is no evidence of abnormal intracranial enhancement. The surrounding soft tissues and bony structures are essentially unremarkable. IMPRESSION: Acute lacunar infarct involving the right basal ganglion that extends into the right periventricular white matter. Electronically signed by Raza Zarate 06/30/2019 12:07 PM
--- NOTE | 2019-06-30 12:21 | Diag Imaging Result Doc PS360 ---
EXAM: MRA BRAIN W/O CONTRAST INDICATION: tia symptoms TECHNIQUE: 3-D [id number] axial images and 3-D MIPS were obtained. COMPARISON: None. FINDINGS: There is a questionable tiny aneurysm involving the anterior communicating artery at its junction with the anterior cerebral artery on the left and measures about 1.5 mm. No other cerebral aneurysms are appreciated. No flow-limiting stenosis or vascular malformation is identified involving the arteries comprising the standing rock of [place], otherwise. This includes the anterior, middle, and posterior cerebral arteries. The distal ICAs and vertebral arteries are patent. The basilar artery appears patent. 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 2.No evidence of flow-limiting stenosis. Electronically signed by Raza Zarate 06/30/2019 12:19 PM
--- NOTE | 2019-06-30 12:47 | NEUROLOGY CONSULTATION ---
DATE: 06/30/2019 LOCATION: Room 424. HISTORY OF PRESENT ILLNESS: Ms. Leo is 68 years old, and there is imaging evidence of acute nondominant subcortical right hemisphere infarction. History from the patient is that she had a nap for 30 minutes 3 days ago, and when she woke, she noticed numbness over the left side of her face and in her left limbs. She rested several minutes and felt better. She got herself up and walked with unsteady gait to the bathroom. She believes she was weak in the left limbs. After a little bit of time in the bathroom, she discovered she could not get herself up. She had to call family for assistance. She presented to the emergency room and was evaluated. Over a period of approximately 12 hours, she reports a sense that numbness and weakness in the left limbs would be prominent for 30 minutes to an hour, and then would be less prominent for 30 minutes to an hour. After about 12 hours, she steadily improved. She feels just about back to baseline today. There is no history of previous stroke, seizure, serious head injury, other neurologic event. She did not have associated right-sided weakness, headache, vision disturbance. She thinks her speech might have been a little bit slurred briefly. She had some dry mouth that may have contributed to a little bit of trouble swallowing, but she did not have definite dysphagia. She has risk factors for cerebrovascular ischemic problems, including dyslipidemia, hypertension, diabetes mellitus type 2. Other past history is remarkable for rheumatoid arthritis, chronic pain, fibromyalgia. Workup here includes initial noncontrast CT unremarkable, and then brain MRI done this morning showing restricted diffusion in the subcortical right hemisphere. I do not have the radiology interpretation yet. There is brain MRA with report pending. CT angiogram of the head and neck 2 days ago was unremarkable. Echocardiogram yesterday showed no source of embolus. Computer record shows lumbar MRI without contrast on 06/24/2018 showed degenerative changes, [id number] spinal stenosis, T12-L1 central disk protrusion. Her blood sugars have ranged 110s to 140s. A1c was 7.1%. Chemistry, including liver enzymes, was otherwise unremarkable. 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 We do not have urine drug screen this admission. She has had some elevated blood pressures, including at least one systolic recorded over 200. Recent systolic blood pressures have been stable, 150s to 180s. On exam, she is awake, alert, attentive, and appropriate. Speech is not dysarthric. Language function is intact. Memory is good. Head and neck are unremarkable. Visual grove are full, tested by confrontational finger counting. Extraocular movements are full. Facial motility is symmetric. She reports good pinprick and light touch appreciation over the face now. Gag is intact. Tongue is midline. She can hear. Shoulder shrug is equal. Strength is normal in the right limbs. I can overcome the left arm at the deltoid, grading 4+/5. Limb tone is symmetric now. She did well on [id number] testing bilaterally. She did rapid alternating movements slightly better with the right hand than the left. She reports symmetric pinprick appreciation over the left and right limbs now. I did not test her gait, but I did see her stand at the bedside and take one step without assistance. Reflexes are trace at the ankles bilaterally. Plantar response is silent bilaterally. IMPRESSION: History of left-sided numbness and weakness, with subjective fluctuation in course over about half a day, and then steady improvement. Imaging findings are noted. In light of the timeframe, greater than 72 hours since onset, stable course, imaging evidence of likely small vessel explanation for infarction, I do not think we have to maintain hypertension, and we can begin to treat her blood pressure more aggressively with target at least systolic 160 or lower, and work towards normal blood pressures soon. I would continue treating blood sugar and lipids aggressively, continue aspirin. I encouraged her to be aggressive with management of her risk factors. I do not have any other suggestion from Neurology standpoint. Thank you for asking us to see Ms. Leo. cc: Lilli Leblanc III, MD [facility]
--- NOTE | 2019-06-30 14:23 | CONSULTATION ---
DATE OF CONSULTATION: 06/30/2019 IMPRESSION: 1. Transient left-sided weakness and numbness. Consider possible transient ischemic attack versus cerebrovascular accident. 2. Exertional shortness of breath. Etiology not clear. 3. Borderline reduced left ventricular systolic function. All echocardiography performed this admission compared to previous echocardiography showing normal left ejection fraction. Previous evaluation for coronary disease in 2015 negative with noninvasive studies. 4. Fibromyalgia and chronic pain disorder. 5. Obesity, morbid. 6. Hypertension. 7. Diabetes mellitus type 2. RECOMMENDATIONS: 1. Agree with further evaluation of cerebral vascular disease with MRI and MRA of the brain and further neurologic workup. 2. For now will continue clinical observation in regards to the patient's decreased left ventricular ejection fraction from 60% to 50% in light of current clinical situation with possible cerebral vascular disease. 3. Following discharge, the patient should followup with her regular editorial writer, Dr. German to consider additional evaluation as she recuperates from her TIA. HISTORY: This 68-year-old, white female with past history of morbid obesity, fibromyalgia, hypertension, chronic pain disorder, and type 2 diabetes mellitus was admitted with acute left- sided weakness and numbness in both arm and leg as well as lower side of left face. Symptoms began in the slasher tender helper and lasted several hours. Thereafter symptoms seem to come and go and she ultimately had resolution after approximately 10 to 12 hours. Neurologic workup is in progress. She has had no chest pain. She does have chronic exertional shortness of breath with seems to be worse over the last 30 days. Echocardiography obtained as part of her neurologic workup indicated left ventricular ejection fraction 50%. With previous study 2 years ago indicated left ventricular ejection fraction 60%. For this reason, Cardiology was consulted. She has not had any orthopnea or anything that sounds like angina. She had previous noninvasive cardiac workup in [address] German which included echocardiography, myocardial perfusion study and coronary CT study. These studies revealed no evidence of coronary disease. In fact her coronary calcium score was 0. Left ventricular systolic function is normal. PAST MEDICAL HISTORY: 1. Morbid obesity. 2. Fibromyalgia. 3. Chronic pain disorder. 4. Degenerative disk disease. 5. Hypertension. 6. Peptic ulcer disease. 7. Diabetes mellitus type 2. PAST SURGICAL HISTORY: 1. Unspecified back surgery. 2. Right knee replacement. 3. Bilateral breast cysts removed. 4. Bilateral breast reduction. 5. Peptic ulcer disease surgery. 6. Diverticular disease of the colon requiring partial colectomy. 7. Total hysterectomy. 8. Cholecystectomy. 9. Appendectomy. ALLERGIES: She is allergic or intolerant to adhesive. MEDICATIONS PRIOR TO ADMISSION: As listed. SOCIAL HISTORY: She has remote history of cigarette use but no longer smokes for many years. She drinks rare alcoholic beverage. She denies illicit drug use. She works at [employer]. She is . FAMILY HISTORY: Positive for diabetes but negative for premature coronary disease. REVIEW OF SYSTEMS: Pulmonary: Noteworthy for exertional shortness of breath but negative for orthopnea. Gastrointestinal: Noncontributory. Constitutional: Noncontributory. Remainder of review of systems negative/noncontributory beyond history present illness with 14 total systems reviewed. PHYSICAL EXAMINATION: This an obese older white female in no distress on room air.Vital signs: Blood pressure 157/88, heart rate 76, oxygen saturation 94%. HEENT: Extraocular movements intact. Mucous membranes are moist. Neck: Supple. No jugular venous distention. There are no carotid bruits. Chest: Clear to auscultation bilaterally. Cardiac Exam: Reveals a regular rate and rhythm without appreciable murmur or gallop. Abdomen: Soft. Bowel sounds normal. Extremities: Without edema. Neurologic: Reveals her to be alert and fully oriented. Speech is fluent. Moves all 4 extremities equally well. Skin: Warm, dry. Psych Exam: Reveals her mood to be appropriate. PERTINENT DATA: Twelve lead electrocardiogram demonstrates normal sinus rhythm left axis deviation, left bundle branch block. Echocardiography reports left ventricular ejection fraction of 50%. LABORATORY DATA: Includes a white blood cell count 7.89 hematocrit 35.2, hemoglobin 11.1, platelet count 243,000. Sodium 141, potassium 3.8, chloride 104, carbon dioxide 26, BUN 6, creatinine 0.6, glucose 138, triglycerides 201. Total cholesterol 154, LDL cholesterol 106 the LDL cholesterol 40 HDL cholesterol 36. Protime 12.9, INR 0.97, PTT 26.6. cc: Campos Galindo MD
[2019-06-30] MEDS: AMBIEN PO SCH (22:11)
[2019-06-30] MEDS: LIPITOR PO SCH (22:11)
[2019-07-01] MEDS: HUMULIN R SUBQ SCH ×2 (06:47→12:00)
[2019-07-01 06:56] LABS: BASO# 0.02 X1000 (0.0-0.2); BASO% 0.3 % (0.0-0.8); EOS# 0.14 X1000 (0.0-0.7); EOS% 2.2 % (0.0-10.0); HEMATOCRIT 37.6 % (37.0-47.0); HEMOGLOBIN 11.9 g/dL (12.0-16.0); IMM GRAN# 0.02 X1000 (0.0-0.04); IMM GRAN% 0.3 % (0.0-0.5); LYMPH# 2.37 X1000 (1.2-3.4); LYMPH% 37.4 % (20.5-51.1); MCH 27.5 PG (27-31); MCHC 31.6 g/dL (33-37); MCV 86.8 FL (81-99); MONO# 0.44 X1000 (0.11-0.59); MONO% 6.9 % (1.7-9.3); MPV 10.2 FL (7.4-10.4); NEUT# 3.35 X1000 (1.4-6.5); NEUT% 52.9 % (42.2-75.2); PLT 259 X1000 (130-400); RBC 4.33 XMIL (4.2-5.4); RDW 12.8 % (11.5-14.5); WBC 6.34 X1000 (4.8-10.8)
[2019-07-01 07:38] VITALS: BP 159/64
[2019-07-01 07:39] LABS: AGAP 10; ALB/GLOB RATIO 1.3; ALBUMIN 3.5 g/dL (3.5-5.0); ALKALINE PHOSPHATASE 84 U/L (32-104); BUN 8 mg/dL (8-22); CALCIUM 8.7 mg/dL (8.8-10.2); CHLORIDE 103 mmol/L (98-107); COSMO 282; CREATININE 0.6 mg/dL (0.5-0.9); ESTIMATED GFR > 60; GLUCOSE 139 mg/dL (70-104); GOT 25 U/L (10-30); GPT 23 U/L (10-36); SODIUM 141 mmol/L (136-145); TCO2 28 mmol/L (25-35); TOTAL BILIRUBIN 0.69 mg/dL (0.20-1.00); TOTAL PROTEIN 6.3 g/dL (6.3-8.3)
[2019-07-01] MEDS: ALDACTONE PO SCH (09:12)
[2019-07-01] MEDS: CYMBALTA PO SCH (09:12)
[2019-07-01] MEDS: LOPRESSOR PO SCH (09:12)
[2019-07-01] MEDS: ASPIRIN PO SCH (09:12)
[2019-07-01] MEDS: DILAUDID PO SCH (09:13)
[2019-07-01] MEDS: COZAAR PO SCH (09:14)
[2019-07-01] MEDS: NORVASC PO SCH (09:14)
[2019-07-01] MEDS: NEURONTIN PO SCH (09:14)
--- NOTE | 2019-07-01 09:14 | Carotid Study ---
DATE: 06/29/2019 REQUESTING PROVIDER: Yan. DIGITAL MARKETING INTERN: Froilan. INDICATIONS: TIA. EQUIPMENT: [employer] Vivid E9 ultrasound system with a 9 L-D transducer. FINDINGS: A complete diagram of ultrasound images can be seen scanned in the patient's medical record. The peak systolic velocity noted on the right side is in the mid internal carotid artery and is noted to be 154. The peak systolic velocity noted on the left side is noted in the mid internal carotid artery and is noted to be 98. The calculated internal common ratio on the right is 2.08 and left 1.37. The calculated stenosis on the right is 60 to 79 percent, left 0 to 39 percent. Both vertebral arteries appear to be antegrade flow. There is atherosclerosis producing a severe stenosis on the right. The vessel is also somewhat tortuous which may confound the velocities. INTERPRETATION: Severe stenosis on the right 60 to 79 percent, left side is normal to mild. cc: MD Lakisha Higgins CRNP
[2019-07-01] MEDS ORDERED: NORVASC PO SCH (21:00)
--- NOTE | 2019-07-01 22:42 | DISCHARGE SUMMARY ---
ADMISSION DATE: 06/28/2019 DISCHARGE DATE: 07/01/2019 DIAGNOSES: 1. Transient ischemic attack with left-sided weakness resolved. 2. Chronic pain syndrome 3. History of fibromyalgia. 4. Uncontrolled hypertension. 5. Diabetes mellitus type 2 with hemoglobin A1c of 7.1. 6. Dyslipidemia. CONSULTS: Dr. Lilli Leblanc, neurology, Dr. Campos Galindo, cardiology. DIAGNOSTICS: 1. CT of the head revealed no evidence of acute disease. 2. Chest x-ray questionable left lower lobe atelectasis. 3. CTA of the head and neck reveals no evidence of significant intra or extra cerebral arterial abnormality. 4. Echocardiogram reveals ejection fraction of 45 to 50 percent. 5. Brain MRA reveals questionable miniscule cerebral aneurysm involving the anterior communicating artery on the left. No evidence of flow-limiting stenosis. 6. Brain MRI acute lacunar infarct involving the right basal ganglion extends into the right periventricular white matter. 7. Carotid Doppler study, severe stenosis in the right 60 to 79 percent, left side is normal to mild. HOSPITAL COURSE: Ms Leo presented to the emergency room with complaint left-sided weakness. It improved shortly after coming to the emergency room but after a CT scan the emergency room doctor noted more weakness, he reached out to Dr. Mojica with tele neurology who reviewed and reportedly stated the patient was not a candidate for tPA. She was admitted for further evaluation. MRI of the brain revealed an acute lacunar infarct involving the right basal ganglia and extended into the right periventricular white matter. She was seen by Dr. Leblanc, neurology who recommended that we target her blood pressure to be 160 systolic or lower and treating blood sugars and lipids aggressively with aspirin. Symptoms did completely resolve after admission. Blood pressures were controlled in the 120 to 150s over 60s range with Norvasc, Cozaar and Lopressor. She is found to have a hemoglobin A1c of 7.1. We continued her home regimen. We did continue her home pain medication regimen. Cardiology was consulted for shortness of breath with activity and decreased EF. She was evaluated by Dr. Campos Galindo who felt that following discharge she should follow with a regular plunger shovel operator for an outpatient evaluation after she recuperates from this CVA. DISCHARGE PHYSICAL EXAM: Vital Signs: Blood pressure is 159/64 with a heart rate of 61, respirations 18, temperature is 98 degrees, room air saturations 98%. Cardiovascular: Regular rate and rhythm. S1 and S2 appreciated. Calves are nontender with peripheral pulses palpable x4 extremities. Pulmonary: Breath sounds are clear. No increased work of breathing noted. Chest rises and falls symmetric respiration. Chest wall is nontender to palpation. Gastrointestinal: Abdomen soft, nontender, nondistended. Bowel sounds in all 4 quadrants. Neurologic: She is awake, alert, oriented x3 with cranial nerves 2-12 grossly intact. DISCHARGE MEDICATIONS: 1. Spironolactone 25 mg p.o. daily. 2. Metformin 500 mg p.o. b.i.d. 3. Lipitor 40 mg p.o. at bedtime. 4. Aspirin 81 mg p.o. daily. 5. Norvasc 5 mg p.o. b.i.d. 6. Ambien 10 mg p.o. at bedtime. 7. Metoprolol 50 mg p.o. b.i.d. 8. Cozaar 50 mg p.o. daily. 9. Dilaudid 4 mg p.o. 4 times a day as per her prescribing physician . 10. Neurontin 400 mg p.o. t.i.d. 11. Cymbalta 60 mg p.o. b.i.d. FOLLOWUP: Dr. Declan Rosas 07/09/2019 at 1:15 p.m. to evaluate carotid stenosis. 1. Margarita Draper 07/03/2019 at 1:[address] Lilli Leblanc as needed. 3. Dr. German her plunger shovel operator. She is to call to schedule an appointment to be seen in the next 2 to 3 weeks. She has been instructed to call to be seen sooner, return to the emergency room for any syncope, dizziness, chest pain, palpitations, any nausea, vomiting, diarrhea, constipation, black or bloody vomitus or stools, any urinary symptoms, any change in speech, vision, any weakness to extremities, any facial droop or for any questions or concerns that she may have. She is being discharged home in stable condition with family members. TIME SPENT: Greater than 30 minutes. Dictated by RIANA Lemus for Franco Mix MD cc: MD Franco Spencer MD [facility]o
== END 2019-07-01 13:28 | disposition home health service (06) | DRG 65 ==
LOC: SUPCPDRO → ED 12:02 → EDIPHOLD 17:16 → SUATTDRO 17:16 → ICU 06-29 → 4N 06-30 10:15
PROVIDERS: ATTEND Internal Medicine